=== PATIENT | female | born 1985 | race Caucasian/White ===

== ENCOUNTER 2024-12-30 09:09 | Emergency (ER) | payer SELFPAY ==
[2024-12-30 09:52] VITALS: BP 125/86; PULSE 93; RESP 18; TEMP 36.6; O2SAT 98; BMI 39.1
--- NOTE | 2024-12-30 09:53 | XR_ITS ---
Examination: Foot, right, 3 views Technique: AP, oblique, lateral views foot, 3 views Date and time of exam: December 30, 2024, 0959 hours INDICATIONS: Work injury to the foot today, foot pain. FINDINGS: Mild osteopenia. Soft tissue swelling at the fifth metatarsophalangeal joint Tiny plantar bony calcaneal spur No acute fracture IMPRESSION: No acute fracture
--- NOTE | 2024-12-30 09:53 | XR_ITS ---
EXAMINATION: Ankle, right 3 views . Technique: Ankle AP, oblique, lateral 3 views Date and time of exam: December 30, 2024, 0959 hours INDICATIONS: Work injury to the ankle today, ankle pain. FINDINGS: No fracture or dislocation. No foreign body IMPRESSION: No fracture or dislocation
--- NOTE | 2024-12-30 09:53 | XR_ITS ---
Examination: Knee, right , 3 views Technique: Knee AP, lateral, oblique 3 views Date and time of exam: December 30, 2024 0959 hours INDICATIONS: Work injury to the knee today, knee pain FINDINGS: No acute fracture Mild soft tissue swelling prepatellar No knee effusion No opaque foreign body Mild narrowing medial joint space IMPRESSION: No acute fracture
--- NOTE | 2024-12-30 10:38 | EDNOTE_ITS ---
Lower Extremity Injury RME/HPI General Chief Complaint: Extremity Injury, Lower Stated Complaint: right ankle/knee pain s/p fall Time Seen by Provider: 12/30/24 09:12 Arrival date/time: 12/30/24 09:09 39-year-old female presents to the Emergency Department today complains of right ankle pain, right knee pain status post fall at work patient reports that twisted right ankle and right foot injuring right lower extremity patient worse no head or neck injury Limitations: no limitations Related Data Previous Rx's ?Medication ?Instructions ?Recorded ibuprofen 800 mg tablet 800 mg PO TID PRN pain #30 t abs 03/05/18 methylprednisolone 4 mg tablets in 4 mg PO DAILY #21 t abs 03/05/18 a dose pack ibuprofen 800 mg tablet 800 mg PO TID PRN pain #30 t abs 12/30/24 Allergies Allergy/AdvReac Type Severity Reaction Status Date / Time No Known Allergies Allergy Verified 12/30/24 09:12 Review of Systems Review of Systems Systems Reviewed: All systems reviewed, normal except as documented Constitutional Constitutional: Reports system reviewed and no additional complaints, except as documented, Denies fever(s) and Denies headache(s) Eyes Eyes: Reports system reviewed and no additional complaints, except as documented and Denies blurry vision ENT Ears, Nose, Mouth, and Throat: Reports system reviewed and no additional complaints, except as documented, Denies headache(s), Denies nasal congestion and Denies nasal discharge Cardiovascular Cardiovascular: Reports system reviewed and no additional complaints, except as documented, Denies chest pain and Denies dyspnea Respiratory Respiratory: Reports system reviewed and no additional complaints, except as documented, Denies chest congestion, Denies cough and Denies dyspnea Gastrointestinal Gastrointestinal: Reports system reviewed and no additional complaints, except as documented and Denies abdominal pain Musculoskeletal Musculoskeletal: Reports system reviewed and no additional complaints, except as documented, Reports arthralgias, Denies deformity and Denies numbness Integumentary/Breasts Skin/Breast: Reports system reviewed and no additional complaints, except as documented and Denies rash Neurologic Neurologic: Reports system reviewed and no additional complaints, except as documented, Reports as per HPI, Denies headache(s) and Denies numbness Past Medical History Past Medical History CARDIAC: Negative Congestive Heart Failure RESPIRATORY: Negative Chronic Obstructive Pulmonary Disease (COPD) GENITOURINARY: Negative Renal Disease ENDOCRINE: Negative Diabetes Mellitus Type 1 or Diabetes Mellitus Type 2 Social History SMOKING STATUS: Current every day smoker ED Exam General Limitations: Present no limitations General appearance: Present alert and in no apparent distress Head Head exam: Present atraumatic, normocephalic and normal inspection Eye Eye exam: Present normal appearance, PERRL and EOMI; Absent scleral icterus ENT ENT exam: Present normal exam, normal oropharynx and mucous membranes moist Neck Neck exam: Present normal inspection, full ROM and trachea midline Chest Chest inspection: Present normal inspection and symmetric chest wall rise Respiratory Respiratory exam: Present normal lung sounds bilaterally Cardiovascular Cardiovascular exam: Present regular rate, normal rhythm and normal heart sounds Abdominal Exam Abdominal exam: Present soft and normal bowel sounds Extremities Exam Extremities exam: Present normal inspection, full ROM, tenderness and normal capillary refill; Absent joint swelling Back Exam Back exam: Present normal inspection and full ROM Neurological Exam Neurological exam: Present alert, oriented X3 and CN II-XII intact Psychiatric Psychiatric exam: Present normal affect and normal mood Skin Skin exam: Present warm, dry, intact and normal color Course Quality Measures none Orders Category Date Time Status Crutches .NOW Care 12/30/24 11:12 Completed feliciano wrap [Splint / Immobilizer] STAT Care 12/30/24 11:12 Completed XR ankle comp RT min 3V Stat Exams 12/30/24 09:53 Completed XR foot comp RT min 3V Stat Exams 12/30/24 09:53 Completed XR knee RT 3V Stat Exams 12/30/24 09:53 Completed Vital Signs Vital signs: Vital Signs Temperature 97.8 F 12/30/24 09:52 Pulse Rate 93 12/30/24 09:52 Respiratory Rate 18 12/30/24 09:52 Blood Pressure 125/86 H 12/30/24 09:52 Pulse Oximetry (%) 98 12/30/24 09:52 O2 saturation 98% on room air within normal limits Extremity Injury, Lower MDM Narrative MDM Narrative:: 39-year-old female presents to the Emergency Department today complains of right ankle pain, right knee pain status post fall at work patient reports that twisted right ankle and right foot injuring right lower extremity patient worse no head or neck injury On exam patient well-appearing patient does not appear look toxic no acute distress On exam patient is mild tenderness and swelling to the right knee as well as right ankle and foot Patient given crutches and Feliciano wrap Workmen's Compensation papers completed instructed to follow-up Workmen's Compensation doctor soon as possible for worsening symptoms return immediately Patient data External records reviewed:: [facility] previous records Clinical information provided by:: patient Social determinants that could affect healthcare access:: none Patient has the following chronic illnesses:: None How is presenting disease/condition affected by chronic disease/condition?: no chronic disease Evaluation data The following diagnostics were reviewed and interpreted by me:: radiology exam(s) Lab and/or radiology exams considered but not ordered:: Radiology obtained Interpretation Summary: Reviewed by me Medications / Prescriptions Medications or Prescriptions considered but not ordered:: Given Medication administrations:: Given Consultations Consultation(s) initiated? (list below): No Diagnosis Extremity Injury, Lower Differential Diagnosis: acute internal derangement of knee and other Most likely diagnosis given after review of the tests above:: Knee sprain Admission Indicated Admission indicated?: not indicated Admission Request Was there a request for admission?: No Disposition Plan Disposition Plan: Discharge Discharge Attestation Discharge Attestation: The patient and all family members were given an opportunity to ask questions and understood the discharge instructions. Discharge instructions specifically effects, indications for sooner follow up or return to the emergency department, and the expected course of current diagnosis. Patient condition: Stable Discharge Plan Plan Patient Disposition: HOME (Self Care) Discharge Disposition comment: Stable Prescriptions/Referrals Prescriptions/Med Rec: New ibuprofen 800 mg tablet 800 mg PO TID PRN (Reason: pain) Qty: 30 0RF No Action ibuprofen 800 mg tablet 800 mg PO TID PRN (Reason: pain) Qty: 30 0RF methylprednisolone 4 mg tablets,dose pack 4 mg PO DAILY Qty: 21 0RF Rx Instructions: Dispense as directed on the Dosepak Referrals: No Primary/Family,Physician [Primary Care Provider] - 12/31/24 Problem List Clinical Impression: Contusion of foot, right, Knee pain, right, Work related injury Patient/Caregiver Discharge Instructions Education Materials: ED FELICIANO Wrap Additional Instructions: Please follow-up with Workmen's Compensation doctor as discussed for worsening symptoms return immediately Print Language: Divehi Stand Alone Forms: Nina Award Info., Patient Portal Info Letter PA/PETROLEUM SAMPLER Supervising Physician PA/VIVEK Supervising Physician: Dr. Granados
== END 2024-12-30 12:02 | disposition home or self-care (01) ==
PROVIDERS: Emergency Provider Nurse Practitioner Primary Care
DX: S90.31XA Contusion of right foot, initial encounter (principal); W01.0XXA Fall on same level from slipping, tripping and stumbling without subsequent striking against object, initial encounter; Y93.89 Activity, other specified; Y92.59 Other trade areas as the place of occurrence of the external cause; Y99.0 Civilian activity done for income or pay
CPT/HCPCS: 73562; 73610; 73630; 99284

== ENCOUNTER 2025-03-01 10:35 | Emergency (ER) | payer MEDICAID, SELFPAY ==
[2025-03-01 10:50] VITALS: BP 160/91; PULSE 77; RESP 20; TEMP 36.7; O2SAT 97
--- NOTE | 2025-03-01 10:59 | EKG_ITS ---
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
--- NOTE | 2025-03-01 10:59 | XR_ITS ---
EXAMINATION: AP chest single view TECHNIQUE: Sitting portable AP chest single view Date and time: March 01, 2025, 1138 hours INDICATIONS: Chest discomfort today. FINDINGS: Normal heart size Lungs are clear. The osseous structures are intact IMPRESSION: No active disease
--- NOTE | 2025-03-01 10:59 | PD.EDRME ---
Rapid Medical Screening Exam E Arrival date/time: 03/01/25 10:35 39-year-old female with no known medical history presents to the emergency room with a chief complaint of palpitations, shakiness, weakness x 3 days I have greeted and performed a focused initial assessment of this patient. A comprehensive ED assessment and evaluation of the patient, analysis of all test results, and completion of the medical decision making process will be conducted by additional ED providers. Chief Complaint: Dental/Oral/Throat Time Seen by Provider: 03/01/25 10:44 Vital signs: Vital Signs Temperature 98.0 F 03/01/25 10:50 Pulse Rate 77 03/01/25 10:50 Respiratory Rate 20 03/01/25 10:50 Blood Pressure 160/91 H 03/01/25 10:50 Pulse Oximetry (%) 97 03/01/25 10:50 Oxygen Delivery Method Room Air 03/01/25 10:50 Vital signs reviewed by provider: Yes Exam: Clear bilateral lung sounds S1 and S2 noted Soft nontender abdomen Clinical Impression: Alcohol withdrawals/electrolyte imbalance
[2025-03-01 11:25] LABS: Basophils # (Auto) 0.0 Thou/mm3 (0.0-0.2); Basophils % (Auto) 1 % (0-2.5); Eosinophils # (Auto) 0.2 Thou/mm3 (0.0-0.5); Eosinophils % (Auto) 3 % (0-10); Hematocrit 36.9 % (36.0-46.0); Hemoglobin 11.9 g/dL (12.0-16.0); Immature Granulocytes Auto 0.06 Thou/mm3 (0.00-0.00); Lymphocytes # (Auto) 2.4 Thou/mm3 (1.0-4.8); Lymphocytes % (Auto) 34 % (10-50); Mean Corpuscular HGB Conc 32.2 g/dl (31.0-37.0); Mean Corpuscular Hemoglobin 27.6 pg (25.0-35.0); Mean Corpuscular Volume 86 fL (80-100); Monocytes # (Auto) 0.5 Thou/mm3 (0.0-0.8); Monocytes % (Auto) 7 % (0-12); Neutrophils # (Auto) 3.8 Thou/mm3 (1.8-7.7); Neutrophils % (Auto) 54 % (37-80); Nucleated Red Blood Cell # 0.00 Thou/mm3 (0.00-0.00); Nucleated Red Blood Cell % 0 /100 WBC (0); Platelet Count 265 Thou/mm3 (140-440); RDW Standard Deviation 48.5 fL (36.4-46.3); Red Blood Count 4.31 Miln/mm3 (4.00-5.20); White Blood Count 7.0 Thou/mm3 (3.6-11.0)
[2025-03-01 11:44] LABS: B-Type Natriuretic Peptide 26 pg/mL (0-100)
[2025-03-01 11:48] LABS: INR 1.0 (0.9-1.3); Partial Thromboplastin Time 27.1 Seconds (22.0-36.0); Prothrombin Time 11.0 Seconds (9.0-12.2)
[2025-03-01 12:01] LABS: Alanine Aminotransferase 29 U/L (10-49); Albumin, Serum 4.6 gm/dL (3.5-5.0); Albumin/Globulin Ratio 1.0 (1.2-2.2); Alcohol, Blood Medical < 3.0 mg/dL (0-10.0); Anion Gap 13 (7-16); Aspartate Amino Transferase 19 U/L (0-34); BUN/Creatinine Ratio 28 Ratio (12-20); Bilirubin,Total 0.7 mg/dL (0.3-1.2); Blood Urea Nitrogen 17 mg/dL (9-23); Calcium 10.1 mg/dL (8.3-10.6); Calcium (Corrected) 10.1 mg/dL (8.5-10.1); Carbon Dioxide 20.5 mMol/L (20.0-31.0); Chloride 103 mMol/L (98-107); Creatinine (Component) 0.6 mg/dL (0.6-1.3); Estimated Creatinine Clearance 4.8 mL/min (>60); Free T4 (Free Thyroxine) 1.25 ng/dL (0.89-1.76); Globulin 4.7 gm/dL (2.3-3.5); Glucose 112 mg/dL (74-106); Magnesium 1.8 mg/dL (1.6-2.6); Osmolality,Calculated 274 (275-295); Potassium 3.8 mMol/L (3.4-5.1); Sodium 136 mMol/L (136-145); Thyroid Stimulating Hormone 1.16 uIU/mL (0.55-4.78); Total Protein 9.3 gm/dL (5.7-8.2); Troponin I < 0.020 ng/mL (0.0-0.045); eGFR > 60 See Note
[2025-03-01 12:35] LABS: Alkaline Phosphatase 139 U/L (46-116)
[2025-03-01 13:01] LABS: Collection Type, Urine Clean Catch
[2025-03-01 13:18] LABS: Bilirubin,Urine Negative (Negative); Blood,Urine Negative (Negative); Clarity,Urine Turbid (Clear/Hazy); Color,Urine Yellow (Lt Yel-Yel); Culture Indicated,Urine Not Indicated; Glucose, Urine Negative (Negative); Ketones,Urine 1+ (Negative); Leukocyte Esterase,Urine Negative (Negative); Nitrite,Urine Negative (Negative); PH,Urine 6.0 (5.0-7.0); Protein,Urine 1+ (Neg - Trace); RBC,Urine 8 /hpf (0-3); Specific Gravity,Urine 1.036 (1.001-1.035); Squamous Epithelial Cell,Urine 7 /hpf (0-5); Urobilinogen,Urine Negative mg/dL (0.0-1.0); WBC,Urine 4 /hpf (0-5)
[2025-03-01 13:20] LABS: Amphetamine/Methamp Scrn,U Negative (Negative); Barbiturate Screen,Urine Negative (Negative); Benzodiazepines Screen,Urine Negative (Negative); Benzoylecgonine Screen, Ur Negative (Negative); Fentanyl Screen,Urine Negative (Negative); Opiate Screen,Urine Negative (Negative); THC Screen,Urine Negative (Negative)
--- NOTE | 2025-03-01 14:15 | PC.NURSE ---
PT CAME TO TRIAGE DESK STATING I WANT TO SIGN MYSELF OUT, I'M INPATIENT. PT ENCOURAGED TO STAY. PT REFUSED. AMA FOR SIGNED.
== END 2025-03-01 14:17 | disposition left against medical advice (07) ==
PROVIDERS: Nurse Practitioner Family; Emergency Provider Emergency Medicine
DX: F10.239 Alcohol dependence with withdrawal, unspecified (principal); E87.8 Other disorders of electrolyte and fluid balance, not elsewhere classified; R94.31 Abnormal electrocardiogram [ECG] [EKG]; R07.89 Other chest pain; Y90.0 Blood alcohol level of less than 20 mg/100 ml; Z53.29 Procedure and treatment not carried out because of patient's decision for other reasons
CPT/HCPCS: 36415; 71045; 80053; 80307; 80320; 81001; 83735; 83880; 84439; 84443; 84484; 85025; 85610; 85730; 93005; 99283; G0480

== ENCOUNTER 2025-03-08 00:21 | Emergency (ER) | payer MEDICAID, SELFPAY ==
[2025-03-08 00:36] VITALS: BP 130/81; PULSE 99; RESP 18; TEMP 36.9; O2SAT 99; BMI 37.1
--- NOTE | 2025-03-08 00:42 | PD.EDRME ---
Rapid Medical Screening Exam RME Arrival date/time: 03/08/25 00:21 This is a case of 39-year-old female with history of thoracostomy and G-tube insertion came in in the emergency room due to abdominal pain and bleeding on the site of the PEG tube today persistence of the symptoms this patient decided to start consulted in the emergency room Chief Complaint: General Adult/Misc Complain Time Seen by Provider: 03/08/25 00:23 Vital signs: Vital Signs Temperature 98.5 F 03/08/25 00:36 Pulse Rate 99 03/08/25 00:36 Respiratory Rate 18 03/08/25 00:36 Blood Pressure 130/81 03/08/25 00:36 Pulse Oximetry (%) 99 03/08/25 00:36 Oxygen Delivery Method Room Air 03/08/25 00:36 Exam: Moderate tenderness on both upper abdomen noted some bleeding discharge on the area of PEG tube no guarding no rebound no rigidity Clinical Impression: Abdominal pain G-tube malfunction
[2025-03-08 01:03] LABS: Collection Type, Urine Clean Catch
[2025-03-08 01:22] LABS: Basophils # (Auto) 0.0 Thou/mm3 (0.0-0.2); Basophils % (Auto) 1 % (0-2.5); Eosinophils # (Auto) 0.3 Thou/mm3 (0.0-0.5); Eosinophils % (Auto) 3 % (0-10); Hematocrit 34.1 % (36.0-46.0); Hemoglobin 11.1 g/dL (12.0-16.0); Immature Granulocytes Auto 0.04 Thou/mm3 (0.00-0.00); Lymphocytes # (Auto) 3.0 Thou/mm3 (1.0-4.8); Lymphocytes % (Auto) 35 % (10-50); Mean Corpuscular HGB Conc 32.6 g/dl (31.0-37.0); Mean Corpuscular Hemoglobin 28.5 pg (25.0-35.0); Mean Corpuscular Volume 88 fL (80-100); Monocytes # (Auto) 0.7 Thou/mm3 (0.0-0.8); Monocytes % (Auto) 8 % (0-12); Neutrophils # (Auto) 4.6 Thou/mm3 (1.8-7.7); Neutrophils % (Auto) 53 % (37-80); Nucleated Red Blood Cell # 0.00 Thou/mm3 (0.00-0.00); Nucleated Red Blood Cell % 0 /100 WBC (0); Platelet Count 266 Thou/mm3 (140-440); RDW Standard Deviation 49.1 fL (36.4-46.3); Red Blood Count 3.89 Miln/mm3 (4.00-5.20); White Blood Count 8.7 Thou/mm3 (3.6-11.0)
[2025-03-08 01:26] LABS: HCG Qualitative,Urine Negative
[2025-03-08 01:51] LABS: Bacteria,Urine 4+; Bilirubin,Urine Negative (Negative); Blood,Urine Negative (Negative); Clarity,Urine Turbid (Clear/Hazy); Color,Urine Yellow (Lt Yel-Yel); Glucose, Urine Negative (Negative); Hyaline Casts,Urine < 1 /hpf (0-1); Ketones,Urine Negative (Negative); Leukocyte Esterase,Urine Positive (Negative); Nitrite,Urine Negative (Negative); PH,Urine 6.0 (5.0-7.0); Protein,Urine Negative (Neg - Trace); RBC,Urine 3 /hpf (0-3); Specific Gravity,Urine 1.015 (1.001-1.035); Squamous Epithelial Cell,Urine 26 /hpf (0-5); Urobilinogen,Urine Negative mg/dL (0.0-1.0); WBC,Urine 5 /hpf (0-5)
[2025-03-08 03:42] LABS: Alanine Aminotransferase 22 U/L (10-49); Albumin, Serum 4.3 gm/dL (3.5-5.0); Alkaline Phosphatase 129 U/L (46-116); Anion Gap 10 (7-16); Aspartate Amino Transferase 20 U/L (0-34); BUN/Creatinine Ratio 12 Ratio (12-20); Bilirubin,Total 0.3 mg/dL (0.3-1.2); Blood Urea Nitrogen 7 mg/dL (9-23); Calcium 9.5 mg/dL (8.3-10.6); Calcium (Corrected) 9.5 mg/dL (8.5-10.1); Carbon Dioxide 21.3 mMol/L (20.0-31.0); Chloride 107 mMol/L (98-107); Creatinine (Component) 0.6 mg/dL (0.6-1.3); Estimated Creatinine Clearance 152.1 mL/min (>60); Glucose 110 mg/dL (74-106); Lipase 99 U/L (12-53); Osmolality,Calculated 274 (275-295); Potassium 3.9 mMol/L (3.4-5.1); Sodium 138 mMol/L (136-145); eGFR > 60 See Note
--- NOTE | 2025-03-08 04:12 | EDNOTE_ITS ---
ED General RME/HPI General Chief complaint: General Adult/Misc Complain Stated complaint: PEG TUBE SITE BLEEDING Time Seen by Provider: 03/08/25 00:23 Arrival date/time: 03/08/25 00:21 Limitations: no limitations RME / HPI RME / HPI narrative: 03/08/25 00:21 This is a case of 39-year-old female with history of thoracostomy and G-tube insertion came in in the emergency room due to abdominal pain and bleeding on the site of the PEG tube today persistence of the symptoms this patient decided to start consulted in the emergency room Dr. Meza's Main ED Evaluation: 39yo female with history of thoracostomy, G- tube in place presents to the ED for a chief complaint of bleeding around the G- tube site. Patient was seen at the clinic today and was started on prophylactic antibiotics. Patient is currently requesting to have her G-tube removed, as she has been eating regular foods (teriyaki chicken, rice, and beans today) and tolerating well. Patient denies any abdominal pain, fever, chills, or any other associated symptoms. NKA. Related Data Previous Rx's ?Medication ?Instructions ?Recorded ibuprofen 800 mg tablet 800 mg PO TID PRN pain #30 t abs 03/05/18 methylprednisolone 4 mg tablets in 4 mg PO DAILY #21 t abs 03/05/18 a dose pack tramadol 50 mg tablet 50 mg PO TID PRN pain #15 ta bs 12/10/21 ibuprofen 800 mg tablet 800 mg PO TID PRN pain #30 t abs 12/30/24 Allergies Allergy/AdvReac Type Severity Reaction Status Date / Time No Known Allergies Allergy Verified 03/08/25 00:22 Review of Systems Review of Systems Systems Reviewed: All systems reviewed, normal except as documented Past Medical History Past Medical History CARDIAC: Negative Congestive Heart Failure RESPIRATORY: Negative Chronic Obstructive Pulmonary Disease (COPD) GENITOURINARY: Negative Renal Disease ENDOCRINE: Negative Diabetes Mellitus Type 1 or Diabetes Mellitus Type 2 Social History SMOKING STATUS: Never smoker ED Exam General Limitations: Present no limitations General appearance: Present alert and in no apparent distress Head Head exam: Present atraumatic Eye Eye exam: Present normal appearance, PERRL and EOMI ENT ENT exam: Present normal exam, normal oropharynx and mucous membranes moist Neck Neck exam: Present normal inspection, full ROM and trachea midline Chest Chest inspection: Present normal inspection and symmetric chest wall rise Respiratory Respiratory exam: Present normal lung sounds bilaterally Cardiovascular Cardiovascular exam: Present regular rate, normal rhythm and normal heart sounds Abdominal Exam Abdominal exam: Present soft and other (G-tube in place with dry blood near the entrance of the site, but no surrounding discharge); Absent distention or tenderness Extremities Exam Extremities exam: Present normal inspection and full ROM Back Exam Back exam: Present normal inspection and full ROM Neurological Exam Neurological exam: Present alert, oriented X3 and CN II-XII intact Psychiatric Psychiatric exam: Present normal affect and normal mood Skin Skin exam: Present warm, dry, intact, normal color and other (scars to bilateral arms and back) Course Quality Measures none Orders Category Date Time Status CBC Stat Lab 03/08/25 01:02 Completed Comprehensive Metabolic Panel Stat Lab 03/08/25 01:02 Results HCG Qualitative,Urine Stat Lab 03/08/25 00:54 Completed Lipase Stat Lab 03/08/25 01:02 Results Urinalysis Stat Lab 03/08/25 00:54 Completed Vital Signs Vital signs: Vital Signs Temperature 98.5 F 03/08/25 00:36 Pulse Rate 99 03/08/25 00:36 Respiratory Rate 18 03/08/25 00:36 Blood Pressure 130/81 03/08/25 00:36 Pulse Oximetry (%) 99 03/08/25 00:36 Oxygen Delivery Method Room Air 03/08/25 00:36 PROCEDURES: Feeding Tube Replacement Type of Tube: G-J Tube Additional Comments: G-tube removal. After the area is cleaned. This time the G-tube does not have a balloon that needs to have fluid or air withdrawn. With a slight tug the G-tube was easily removed. The patient tolerated the procedure well. No post x-ray needed. Discharge Plan Plan Patient Disposition: HOME (Self Care) Patient condition on transfer: Stable Prescriptions/Referrals Prescriptions/Med Rec: No Action ibuprofen 800 mg tablet 800 mg PO TID PRN (Reason: pain) Qty: 30 0RF methylprednisolone 4 mg tablets,dose pack 4 mg PO DAILY Qty: 21 0RF Rx Instructions: Dispense as directed on the Dosepak tramadol 50 mg tablet 50 mg PO TID PRN (Reason: pain) Qty: 15 0RF ibuprofen 800 mg tablet 800 mg PO TID PRN (Reason: pain) Qty: 30 0RF Referrals: Floyd Marshall MD [Primary Care Provider, Family Practice] - In 1 week Problem List Clinical Impression: Visit for wound check Patient/Caregiver Discharge Instructions Education Materials: Wound Care Additional Instructions: You have decided that you would like your G-tube out since you are eating rice and beans and having 3-4 meals a day and at this time you state you do not need it. There was some dried blood around the area but otherwise no discharge and no surrounding redness. Please take your medications as per your doctor. You will need to get the site checked in the next 48 hours. At this time I do not feel that you need a CAT scan. Return to the emergency department for worsening symptoms or any other concerns, any discharge that is yellow, any active bleeding, you have a fever, any abdominal pain or any other concerns Print Language: Occitan Stand Alone Forms: Nina Award Info., Patient Portal Info Letter MDM Narrative MDM hospital course (for use when minimal MDM required): Scribe Attestation: 03/08/25 - Aracelis Bowman, am scribing for and in the presence of Dr. Meza. The patient presents with some dried blood around G-tube. She was seen by her primary care this morning and told that she possibly might have an infection. When she noticed some dried blood she wanted to come and get it checked out. Otherwise no fevers. Patient states she is eating rice and beans for dinner and had teriyaki today. We discussed risks and benefits and she absolutely request that the G-tube be removed. G-tube removal. After the area is cleaned. This time the G-tube does not have a balloon that needs to have fluid or air withdrawn. With a slight tug the G-tube was easily removed. The patient tolerated the procedure well. Patient is requesting her G-tube to be removed. Risks versus benefits were discussed. Patient has been eating regular foods and is tolerating well without any difficulty. Patient states she does not anticipate that she will be needing the G-tube. I removed the G-tube without difficulty. Clinical Information Provided by: patient Medical Records reviewed [facility] (Per chart review, patient has no relevant previous ED visits.) Meds/Rx considered, not ordered None Labs/Rad/Tests considered, not ordered None Chronic Illness/Social Conditions which may negatively complicate care or outcome(s)-explain: None or not applicable Labs Labs: interpreted by wy Lab(s) Interpretation(s): WBC normal, HnH 11.1/34.1, Plt 266, CMP normal, Lipase 99. Imaging Imaging interpretation: none Medication Administration(s) none Diagnosis Differential Diagnosis ED Complaint MDM: bleeding, infection, cellulitis, abrasion, wound check
[2025-03-08 04:56] VITALS: RESP 16
[2025-03-08 13:22] LABS: Albumin/Globulin Ratio 1.0 (1.2-2.2); Globulin 4.4 gm/dL (2.3-3.5); Total Protein 8.7 gm/dL (5.7-8.2)
== END 2025-03-08 04:57 | disposition home or self-care (01) ==
PROVIDERS: Nurse Practitioner Family; Emergency Provider Emergency Medicine; PCP Family Medicine
DX: K94.21 Gastrostomy hemorrhage (principal)
CPT/HCPCS: 36415; 80053; 81001; 81025; 83690; 85025; 99282